=== PATIENT | female | born 1955 | race Caucasian/White ===

== ENCOUNTER 2021-03-17 12:11 | Outpatient (REF) | payer OTHER, SELFPAY ==
--- NOTE | ~2021-03-17 | XR_ITS ---
EXAMINATION: XR HAND, LEFT CLINICAL INFORMATION: Unspecified dislocation of unspecified finger. Patient cannot take ring fourth digit. COMPARISON: None TECHNIQUE: PA, lateral, and oblique views of the left hand. FINDINGS: There is an obliquely oriented midshaft fracture of the proximal phalanx of the ring finger which is partially obscured by a ring. There is radial displacement by approximately 2 mm, approximately 4 mm foreshortening, and 2 mm palmar displacement of the distal fragment. There is no obvious involvement of the articular surfaces. There is moderate to severe soft tissue edema of the finger about the fracture which is constrained by the ring. Remaining bones of the hands are intact and in normal alignment. Soft tissues are otherwise unremarkable. XR/XR hand LT min 3V IMPRESSION: Obliquely oriented midshaft fracture of the proximal phalanx of the ring finger.
== END 2021-03-17 12:12 | disposition home or self-care (01) ==
LOC: HO.HMGCX 12:11
PROVIDERS: PCP Internal Medicine; Visit Provider Internal Medicine
DX: S63.259A Unspecified dislocation of unspecified finger, initial encounter (principal)
CPT/HCPCS: 73130

== ENCOUNTER 2021-04-24 08:09 | Outpatient (REF) | payer OTHER, SELFPAY ==
--- NOTE | ~2021-04-24 | MM_ITS ---
EXAMINATION: MM SCREENING DIGITAL BREAST TOMOSYNTHESIS, BILATERAL CLINICAL INFORMATION: Screening. Asymptomatic. The lifetime risk of breast cancer based on the Tyrer-Cuzick Model is 6.4%. COMPARISON: Mammography: February 01, 2020 and studies dating back to September 13, 2013 TECHNIQUE: Digital breast tomosynthesis is performed in both the craniocaudal and mediolateral oblique views along with computer-aided detection (CAD). Synthesized 2D images are generated from the tomosynthesis. FINDINGS: The breasts are heterogeneously dense, which may obscure small masses (ACR BI-RADS breast composition Category c). There are no significant masses, abnormal calcifications, or other abnormalities. MM/MM tomosynthesis screening BI IMPRESSION: There are no significant changes from prior study. ASSESSMENT: BI-RADS 1: Negative RECOMMENDATION: Routine annual mammography screening. This patient's information was entered into a reminder system with a target due date for their next mammogram.
== END 2021-04-24 08:10 | disposition home or self-care (01) ==
LOC: HO.MAMMO 08:09
PROVIDERS: Visit Provider Internal Medicine
DX: Z12.31 Encounter for screening mammogram for malignant neoplasm of breast (principal)
CPT/HCPCS: 77063; 77067

== ENCOUNTER 2021-09-25 08:27 | Outpatient (REF) | payer OTHER, SELFPAY ==
--- NOTE | ~2021-09-25 | MM_ITS ---
EXAMINATION: BONE DENSITOMETRY CLINICAL INDICATION: Menopause. COMPARISON: Previous BD dated 06/06/2016 and baseline BD dated 11/13/2006. TECHNIQUE: Using a Approva DXA System (software version: 13.1) manufactured by [employer], dual-energy x-ray absorptiometry was performed of the lumbar spine and left hip. The images are of good technical quality. Summary results are attached. FINDINGS: AP SPINE L1-L4: Current: BMD 1.066 g/cm2, Z-score 0.7, T-score -0.9, normal, 1.1% increase from previous, 4.8% decrease from baseline (<5% change is not significant). Prior: BMD 1.054 g/cm2. Baseline: BMD 1.120 g/cm2. LEFT FEMUR, NECK: Current: BMD 0.909 g/cm2, Z-score 0.6, T-score -0.9, normal. Prior: BMD 0.938 g/cm2. Baseline: BMD 1.007 g/cm2. LEFT FEMUR, TOTAL: Current: BMD 1.005 g/cm2, Z-score 1.2, T-score 0.0, normal, 0.2% increase from previous, 7.1% decrease from baseline (<5% change is not significant). Prior: BMD 1.003 g/cm2. Baseline: BMD 1.082 g/cm2. IDENTIFIED RISK FACTORS: Height loss, menopause, hysterectomy, right oophorectomy. HISTORY OF FRACTURE: Outer; finger. MEDICATIONS: Calcium supplements or multivitamin, vitamin D. MM/XR DEXA axial skeleton IMPRESSION: 1. DIAGNOSIS: Normal bone density based on the lowest T-score value of -0.9 in the femoral neck and lumbar spine applying World Health Organization criteria. 2. 10-YEAR FRACTURE RISK PREDICTION, FRAX: According to the guidelines, FRAX calculation should only be performed on patients in the osteopenia bone density category. Therefore, FRAX was not performed on this patient. 3. Treatment Recommendations: NOF guidelines recommend consideration for treatment in postmenopausal women and men age 50 and older presenting with the following: -A hip or vertebral (clinical or morphometric) fracture. -T-score less than or equal to -2.5 at the femoral neck or spine after appropriate evaluation to exclude secondary causes. -Low bone mass at the hip or spine and a 10-year fracture probability by FRAX of greater than or equal to 3% for hip fracture or greater than or equal to 20% for major osteoporotic fracture based on the [place] adapted WHO algorithm. 4. Other Recommendations: All treatment decisions require clinical judgment and consideration of individual patient factors, including patient preferences, comorbidities, previous drug use, risk factors not captured in the FRAX model (e.g. frailty, falls, vitamin D deficiency, increased bone turnover, interval significant decline in bone density) and possible under or overestimation of fracture risk by FRAX. FUTURE SCAN RECOMMENDATION: People with diagnosed cases of osteoporosis or at high risk for fracture should have regular bone mineral density tests. For patients eligible for Medicare, routine testing is allowed once every 2 years. The testing frequency can be increased to one year for patients who have rapidly progressing disease, those who are receiving or discontinuing medical therapy to restore bone mass, or have additional risk factors.
== END 2021-09-25 08:28 | disposition home or self-care (01) ==
LOC: HO.MAMMO 08:27
PROVIDERS: Visit Provider Internal Medicine
DX: Z13.820 Encounter for screening for osteoporosis (principal); Z78.0 Asymptomatic menopausal state
CPT/HCPCS: 77080

== ENCOUNTER 2022-02-18 07:21 | Day surgery (SDC) | payer OTHER, SELFPAY ==
--- NOTE | 2022-02-15 12:58 | P.CONAN_ITS ---
Documented by User: Lakeshia Calderon NP 02/15/22 12:58 HPI - Anesthesia Eval Consult details Narrative: 66yo F for Colonoscopy [facility] Active Problems Active Problems: All Active Problems (Updated 02/15/22 @ 12:19 by Abram Briones RN) Dislocation, finger (Acute) Past Medical History Medical History Asthma History of benign breast biopsy Hx of endometriosis Irritable bowel syndrome with constipation Surgical History Surgical History History of colonoscopy History of hand surgery History of removal of both ovaries History of total abdominal hysterectomy Social History Social History Patient Tobacco Use Status: Never used Tobacco Use of substances other than those prescribed or required for medical reasons: No Are you DNR?: No Advance Directives: No Advance Directives Information Provided: Yes service: No Current occupational status: retired Current occupation: teacher Meds Allergies Allergy/AdvReac Type Severity Reaction Status Date / Time Seasonal Allergies Allergy Unknown Verified 02/15/22 12:20 Home Medications Medication Instructions Recorded Confirmed Last Taken Type multivitamin 1 tab PO DAILY 03/17/21 Unknown History omega 2-xwl-jxv-fish oil 60 mg-90 1 cap PO DAILY 03/17/21 Unknown History mg-500 mg capsule (Fish Oil) Viactiv 02/15/22 02/15/22 Unknown History albuterol 90 mcg/actuation aerosol mcg inhalation 02/15/22 Unknown History inhaler Exam Exam Date and Time: February 15, 2022 125 Assessment and Plan Assessment Anesthesia Assessment: Chart Reviewed Documented by User: Kamron Manley MD 02/18/22 08:45 PMFSH Past Medical History Medical History Asthma History of benign breast biopsy Hx of endometriosis Irritable bowel syndrome with constipation Family History Family history of problems with anesthesia: No Surgical History Surgical History History of colonoscopy History of hand surgery History of removal of both ovaries History of total abdominal hysterectomy History of Problems with Anesthesia: No Social History Social History Patient Tobacco Use Status: Never used Tobacco Use of substances other than those prescribed or required for medical reasons: No Are you DNR?: No Advance Directives: No Advance Directives Information Provided: Yes service: No Current occupational status: retired Current occupation: teacher Meds Allergies Allergy/AdvReac Type Severity Reaction Status Date / Time Seasonal Allergies Allergy Unknown Verified 02/15/22 12:20 Home Medications Medication Instructions Recorded Confirmed Last Taken Type multivitamin 1 tab PO DAILY 03/17/21 Unknown History omega 9-wqn-icl-fish oil 60 mg-90 1 cap PO DAILY 03/17/21 Unknown History mg-500 mg capsule (Fish Oil) Viactiv 02/15/22 02/15/22 Unknown History albuterol 90 mcg/actuation aerosol mcg inhalation 02/15/22 Unknown History inhaler Exam Airway Mallampati Class: II TM Dist: >3cm Neck ROM: Full Loose/Missing/Broken Teeth: No Heart: rrr+[id number] Lungs: cta b/l Assessment and Plan Assessment Anesthesia Assessment: Anesthesia Plan Discussed Final Anesthetic Review Family History of Problems with Anesthesia: No History of Problems with Anesthesia: No NPO: Yes ASA Class: III Final Preanesthetic Review: No Changes in Pt Med Stat, Meds/Allgs Chart Reviewed, Consent Obtained/Reviewed and Anes Risks/Benef Reviewed Patient Risk: Intermediate Procedure Risk: Low Assessment/Block/Sedation in SS: Assess/Block/Sedation-SS Anesthetic Plan Anesthetic Plan: MAC: and Agree w/ Assess. and Plan Disposition: Standard PACU
[2022-02-18 07:32] VITALS: BMI 20.5
[2022-02-18 07:39] VITALS: BMI 20.5
[2022-02-18 07:55] VITALS: BP 113/61; PULSE 85; RESP 18; TEMP 36.6; O2SAT 98
[2022-02-18] MEDS: Lactated Ringers 1,000 ML 100 ML IVCONT (07:57)
[2022-02-18 09:40] VITALS: BP 99/57; PULSE 79; RESP 24; TEMP 36.6; O2SAT 99
--- NOTE | 2022-02-18 09:42 | P.BOP_ITS ---
Brief Operative Note Date of Service: 02/18/22 Pre-op diagnosis: Screening Post-op diagnosis: other (Colon polyp) Procedure: Colonoscopy to the cecum with hot snare polypectomy and placement of 2 Resolution clips Surgeon: Hugo Gao Anesthesia: MAC Was an Door To Door Salesperson used for this Procedure?: No Estimated blood loss (mL): 0 Pathology: other (A. Transverse colon polyp) Condition: stable Disposition: PACU
[2022-02-18 09:55] VITALS: BP 98/61; PULSE 69; RESP 21; O2SAT 99
[2022-02-18 10:08] VITALS: BP 105/52; PULSE 65; RESP 20; TEMP 36.7; O2SAT 100
--- NOTE | 2022-02-18 10:17 | OP_ITS ---
SURGEON: Hugo Gao MD INDICATIONS: The patient presents for followup of personal history of tubular adenoma of the colon and colorectal cancer screening. Full consent has been obtained from her for this, including risks of bleeding and perforation. PREOPERATIVE DIAGNOSIS: POSTOPERATIVE DIAGNOSIS: PROCEDURE PERFORMED: Colonoscopy to the cecum with hot snare polypectomy and placement of 2 Resolution clips. ESTIMATED BLOOD LOSS: COMPLICATIONS: ANESTHESIA: Monitored anesthesia care. ASSISTANTS: SPECIMENS: PREOPERATIVE DIAGNOSES: Personal history of tubular adenoma of the colon and colorectal cancer screening. POSTOPERATIVE DIAGNOSES: Personal history of tubular adenoma of the colon and colorectal cancer screening, colon polyp, diverticulosis, and internal hemorrhoids. DESCRIPTION OF PROCEDURE: The patient was placed in the left lateral decubitus position. The digital rectal exam revealed no abnormalities. The Olympus video pediatric colonoscope was entered into the rectum and advanced to the cecum with the assistance of abdominal wall pressure. Advancement to the cecum was difficult and required abdominal wall pressure. Once in the cecum, I did identify cecal pouch with appendiceal orifice and a normal-appearing ileocecal valve. The cecal pouch appeared normal. There was transillumination of light deep in the right lower quadrant. The scope was slowly withdrawn assessing all mucosal surfaces carefully. For the most part, preparation was very good throughout the colon, although there were some areas of liquid stool in the descending and sigmoid colon, which were irrigated and suctioned away as best as possible. In the area of the transverse colon, there was a large approximately 1.5 to 2 cm flat, but raised polypoid lesion that was removed by hot snare polypectomy in piecemeal fashion. Two pieces were recovered by suction and the 3rd larger piece was recovered with a retrieval net bringing it out of the patient after the below 2 clips were applied to the polypectomy site.. The polypectomy site appeared to be clean, without any sign of residual polyp nor bleeding. I did place 2 resolution clips on the polypectomy site with good deployment and hemostasis.. Given the difficulty of the procedure, I did not go back to the polypectomy site. As I was withdrawing the retrieval net with the polyp in it from the patient, I was able to achieve a good visualization and no other polyps were visualized. There was no evidence of any colitis nor angiodysplasia. There was a mild amount of sigmoid diverticulosis noted. The scope was withdrawn from the patient and the retrieval net with the polyp was removed from the scope. The scope was readvanced into the rectum and the scope was retroflexed visualizing internal hemorrhoids, but no other pathology. The scope was straightened and withdrawn from the patient. She tolerated the procedure well and was returned to the recovery area in stable condition. IMPRESSION: 1. Colon polyp. 2. Diverticulosis. 3. Internal hemorrhoids. PLAN: The results of the pathology will be checked. Given the appearance and the size of the polyp, as well as the difficult procedure, I would recommend a repeat colonoscopy in 1 year for further surveillance. She will otherwise see me on a p.r.n. basis. She was advised not to use any aspirin or NSAIDs for 1 week. MD KAREN Doshi/LI / [id number] MTDD
== END 2022-02-18 11:03 | disposition home or self-care (01) ==
PROVIDERS: PCP Internal Medicine; Visit Provider Internal Medicine
PROC: 0DJD8ZZ Inspection of Lower Intestinal Tract, Via Natural or Artificial Opening Endoscopic (ICD-10-PCS; CPT 45378; principal; 2022-02-18 08:30)
DX: Z12.11 Encounter for screening for malignant neoplasm of colon (principal); Z86.010 Personal history of colon polyps; D12.3 Benign neoplasm of transverse colon; K57.30 Diverticulosis of large intestine without perforation or abscess without bleeding; K64.8 Other hemorrhoids; K58.1 Irritable bowel syndrome with constipation; J45.909 Unspecified asthma, uncomplicated; Z79.899 Other long term (current) drug therapy
CPT/HCPCS: 45385; 88305

== ENCOUNTER 2022-04-26 08:19 | Outpatient (REF) | payer OTHER, SELFPAY ==
--- NOTE | ~2022-04-26 | MM_ITS ---
EXAMINATION: MM SCREENING DIGITAL BREAST TOMOSYNTHESIS, BILATERAL CLINICAL INFORMATION: Screening. Asymptomatic. The lifetime risk of breast cancer based on the Tyrer-Cuzick Model is 7%. COMPARISON: Mammography: 04/24/2021, 02/01/2020, 01/27/2020, 01/11/2019, 06/26/2018, 12/19/2017, 12/05/2017 TECHNIQUE: Digital breast tomosynthesis is performed in both the craniocaudal and mediolateral oblique views along with computer-aided detection (CAD). Synthesized 2D images are generated from the tomosynthesis. Additional exaggerated right CC view is provided. FINDINGS: The breasts are heterogeneously dense, which may obscure small masses (ACR BI-RADS breast composition Category c). Parenchymal pattern is similar to prior studies. There is no developing density or architectural abnormality. Again, there are numerous bilateral scattered calcifications similar in distribution and number. No significant changes from prior exams. The axilla and skin contours are unremarkable. MM/MM tomosynthesis screening BI IMPRESSION: No mammographic evidence of malignancy. ASSESSMENT: BI-RADS 2: Benign RECOMMENDATION: Routine annual mammography screening. This patient's information was entered into a reminder system with a target due date for their next mammogram.
== END 2022-04-26 08:20 | disposition home or self-care (01) ==
LOC: HO.MAMMO 08:19
PROVIDERS: PCP Internal Medicine; Visit Provider Internal Medicine
DX: Z12.31 Encounter for screening mammogram for malignant neoplasm of breast (principal)
CPT/HCPCS: 77063; 77067

== ENCOUNTER 2023-05-09 09:06 | Outpatient (REF) | payer OTHER, SELFPAY ==
--- NOTE | ~2023-05-09 | MM_ITS ---
EXAMINATION: MM SCREENING DIGITAL BREAST TOMOSYNTHESIS, BILATERAL CLINICAL INFORMATION: Screening. Asymptomatic. COMPARISON: Mammography: This study is compared with prior exams dating back to 2018. TECHNIQUE: Digital breast tomosynthesis is performed in both the craniocaudal and mediolateral oblique views along with computer-aided detection (CAD). Synthesized 2D images are generated from the tomosynthesis. FINDINGS: The breasts are heterogeneously dense, which may obscure small masses (ACR BI-RADS breast composition Category c). In the upper outer quadrant of the anterior third of the right breast, there is a focal asymmetry which warrants additional mammographic and targeted sonographic evaluation. In the left breast, there are no significant masses, abnormal calcifications, or other abnormalities. MM/MM tomosynthesis screening BI IMPRESSION: Focal asymmetry of the right breast warrants additional mammographic and targeted sonographic evaluation. No mammographic signs of malignancy left breast. ASSESSMENT: BI-RADS BI-RADS 0 - Incomplete: Needs additional Imaging. RECOMMENDATION: 1. Additional views of the right breast. 2. Targeted ultrasound if warranted after review of the additional views. 3. Radiology department staff will contact the patient for additional imaging. Additional Imaging required This examination should not preclude the clinical evaluation of a suspicious palpable abnormality. This patient's information was entered into a reminder system with a target due date for their next mammogram.
== END 2023-05-09 09:07 | disposition home or self-care (01) ==
LOC: HO.MAMMO 09:06
PROVIDERS: PCP Internal Medicine; Visit Provider Internal Medicine
DX: Z12.31 Encounter for screening mammogram for malignant neoplasm of breast (principal)
CPT/HCPCS: 77063; 77067

== ENCOUNTER → 2023-05-09 09:15 | Outpatient (BNV) | payer OTHER, SELFPAY | PROVIDERS: PCP Internal Medicine; Visit Provider Radiology Diagnostic Radiology | DX: Z12.31 Encounter for screening mammogram for malignant neoplasm of breast (principal) | CPT/HCPCS: 77063; 77067 ==

== ENCOUNTER 2023-06-10 14:00 | Outpatient (REF) | payer OTHER, SELFPAY ==
--- NOTE | ~2023-06-10 | US_ITS ---
EXAMINATION: MM DIAGNOSTIC DIGITAL BREAST TOMOSYNTHESIS, RIGHT US BREAST LIMITED, RIGHT MAMMOGRAPHY: CLINICAL INFORMATION: Diagnostic Follow-up for focal asymmetry right breast upper outer quadrant anterior one third seen on screening exam. COMPARISON: Mammography: 05/09/2023, 04/26/2022, 04/24/2021, 02/01/2020, 01/27/2020, 01/11/2019, 06/26/2018, 12/19/2017, 12/05/2017 and dating back to 2013. TECHNIQUE: Digital breast tomosynthesis is performed in the following views: Full-field digital 3-D right mediolateral view, 3-D spot compression views right CC x2 and right MLO x1. FINDINGS: The breasts are extremely dense, which lowers the sensitivity of mammography (ACR BI-RADS breast composition Category d). Diagnostic views demonstrate essential effacement of the right breast upper outer quadrant anterior one third focal asymmetry, which in retrospect appears similar to examinations dating back to 2013. Again, there are numerous bilateral scattered calcifications similar in distribution and number with no aggressive changes. No dominant mass, or definite area of architectural distortion identified. The fibronodular dense parenchymal pattern is essentially unchanged from multiple prior exams. There is no skin or axillary abnormality. ULTRASOUND: CLINICAL INFORMATION: Diagnostic Follow-up for focal asymmetry right breast upper outer quadrant anterior one third seen on screening exam. COMPARISON: No prior ultrasound. TECHNIQUE: Targeted sonographic evaluation was performed using a high frequency linear transducer. Attention was focused on the upper outer quadrant of the right breast extending to the retroareolar region. Selected archived documentation. FINDINGS: RIGHT BREAST: There is dense fibronodular and fibrocystic tissue. No suspicious mass is seen. There is no pathologic acoustic shadowing. There is prominent retroareolar duct ectasia extending to the 9:00 axis without definite intraductal mass or filling defect. At the 9:00 axis there is a simple cyst measuring 1.0 x 0.3 x 1.1 cm, which may actually represent an ectatic duct when the the cine clip is viewed. US/US breast RT limited mamm only IMPRESSION: There are no findings suspicious for malignancy in the right breast. Extremely dense nodular breast parenchyma is again noted, with associated retroareolar duct ectasia as detailed. This duct ectasia likely represents the asymmetry in question which mostly effaces on diagnostic views. These findings are benign. Recommend the patient return to routine annual screening. OVERALL ASSESSMENT: Mammography: BI-RADS 2 - Benign Findings Ultrasound: BI-RADS 2 - Benign Findings RECOMMENDATION: 1 year F/U Results were provided to the patient at time of visit by the technologist. This patient's information was entered into a reminder system with a target due date for their next mammogram.
== END 2023-06-10 14:01 | disposition home or self-care (01) ==
LOC: HO.MAMMO 14:00
PROVIDERS: PCP Internal Medicine; Visit Provider Internal Medicine
DX: N64.89 Other specified disorders of breast (principal)
CPT/HCPCS: 76642; 77061; 77065

== ENCOUNTER → 2023-06-10 14:30 | Outpatient (BNV) | payer OTHER, SELFPAY | PROVIDERS: PCP Internal Medicine; Visit Provider Radiology Diagnostic Radiology | DX: N64.89 Other specified disorders of breast (principal) | CPT/HCPCS: 76642; 77061; 77065 ==

== ENCOUNTER 2023-09-01 09:20 | Day surgery (SDC) | payer OTHER, SELFPAY ==
[2023-08-28 14:24] VITALS: BMI 21.0
--- NOTE | 2023-08-29 09:17 | HO.ANESPROP2 ---
Documented by User: Lakeshia Calderon NP 08/29/23 09:17 HPI - Anesthesia Eval Consult details Narrative: 68yo F for Colonoscopy PMFSH Active Problems Active Problems: All Active Problems Dislocation, finger (Acute) Past Medical History Medical History Hx of endometriosis History of benign breast biopsy Asthma Irritable bowel syndrome with constipation Family History Family history of problems with anesthesia: No Surgical History Surgical History (Updated 08/28/23 @ 14:23 by Masha Caldwell RN) History of hand surgery History of total abdominal hysterectomy History of removal of both ovaries History of colonoscopy History of Problems with Anesthesia: No Social History Social History Patient Tobacco Use Status: Never used Tobacco Second Hand Smoke Exposure: No Use of substances other than those prescribed or required for medical reasons: No Are you DNR?: No Advance Directives: No Advance Directives Information Provided: Yes Advance Directives on File: No service: No Current occupational status: retired Current occupation: teacher Meds Allergies Allergy/AdvReac Type Severity Reaction Status Date / Time Seasonal Allergies Allergy Unknown Verified 02/15/22 12:20 Home Medications ?Medication ?Instructions ?Recorded ?Confirmed ?Last Taken ?Type multivitamin 1 tab PO DAILY 03/17/21 08/28/23 Unknown History omega 3-pbo-oeb-fish oil 60 mg-90 1 cap PO DAILY 03/17/21 08/28/23 Unknown History mg-500 mg capsule (Fish Oil) albuterol 90 mcg/actuation aerosol 90 mcg inhalation Q4H PRN 02/15/22 08/28/23 Unknown History inhaler Shortness Of Breath Lactobacillus acidophilus and 1 cap PO DAILY 08/28/23 08/28/23 Unknown History rhamnosus 15 billion cell capsule (Probiotic) calcium-vitamin D3-vitamin K 500 1 tab PO DAILY 08/28/23 08/28/23 Unknown History mg-100 unit-40 mcg chewable tablet Exam Height,Weight and Vital Signs: Height 5 ft 8.5 in Weight 63.503 kg Assessment and Plan Assessment Anesthesia Assessment: Chart Reviewed Final Anesthetic Review Family History of Problems with Anesthesia: No History of Problems with Anesthesia: No Documented by User: [place] Evangelista MD 09/01/23 10:29 [facility] Past Medical History Medical History Hx of endometriosis History of benign breast biopsy Asthma Irritable bowel syndrome with constipation Surgical History Surgical History (Updated 08/28/23 @ 14:23 by Masha Caldwell RN) History of hand surgery History of total abdominal hysterectomy History of removal of both ovaries History of colonoscopy Social History Social History Patient Tobacco Use Status: Never used Tobacco Second Hand Smoke Exposure: No Use of substances other than those prescribed or required for medical reasons: No Are you DNR?: No Advance Directives: No Advance Directives Information Provided: Yes Advance Directives on File: No service: No Current occupational status: retired Current occupation: teacher [employer] Allergies Allergy/AdvReac Type Severity Reaction Status Date / Time Seasonal Allergies Allergy Unknown Verified 02/15/22 12:20 Home Medications ?Medication ?Instructions ?Recorded ?Confirmed ?Last Taken ?Type multivitamin 1 tab PO DAILY 03/17/21 08/28/23 Unknown History omega 5-kpe-ifv-fish oil 60 mg-90 1 cap PO DAILY 03/17/21 08/28/23 Unknown History mg-500 mg capsule (Fish Oil) albuterol 90 mcg/actuation aerosol 90 mcg inhalation Q4H PRN 02/15/22 08/28/23 Unknown History inhaler Shortness Of Breath Lactobacillus acidophilus and 1 cap PO DAILY 08/28/23 08/28/23 Unknown History rhamnosus 15 billion cell capsule (Probiotic) calcium-vitamin D3-vitamin K 500 1 tab PO DAILY 08/28/23 08/28/23 Unknown History mg-100 unit-40 mcg chewable tablet Exam Airway Mallampati Class: II TM Dist: <=3cm Neck ROM: Full Loose/Missing/Broken Teeth: No Heart: rrr Lungs: cta Assessment and Plan Assessment Anesthesia Assessment: Anesthesia Plan Discussed Final Anesthetic Review NPO: Yes ASA Class: II Final Preanesthetic Review: No Changes in Pt Med Stat, Meds/Allgs Chart Reviewed, Consent Obtained/Reviewed and Anes Risks/Benef Reviewed Patient Risk: Intermediate Procedure Risk: Intermediate Anesthetic Plan Anesthetic Plan: MAC: Disposition: Standard PACU
[2023-09-01 10:15] VITALS: BMI 21.0
[2023-09-01 10:25] VITALS: BP 138/71; PULSE 90; RESP 16; TEMP 37.1; O2SAT 99
[2023-09-01] MEDS: Lactated Ringers 1,000 ML 100 ML IVCONT (10:31)
[2023-09-01 12:08] VITALS: BP 94/53; PULSE 99; RESP 16; TEMP 36.1; O2SAT 97
--- NOTE | 2023-09-01 12:16 | P.BOP_ITS ---
Brief Operative Note Date of Service: 09/01/23 Pre-op diagnosis: Screening Post-op diagnosis: other (Diverticulosis) Procedure: Colonoscopy to the cecum and TI Surgeon: Hugo Gao MD Anesthesia: MAC Was an Paraprofessional Aide Teacher used for this Procedure?: No Estimated blood loss (mL): 0 Pathology: none sent Condition: stable Disposition: PACU
[2023-09-01 12:23] VITALS: BP 103/46; PULSE 90; RESP 16; O2SAT 98
[2023-09-01 12:37] VITALS: BP 101/54; PULSE 89; RESP 14; TEMP 36.2; O2SAT 99
--- NOTE | 2023-09-01 12:58 | OP_ITS ---
DATE OF SERVICE: 09/01/2023 SURGEON: Hugo Gao MD INDICATIONS: The patient presents for followup of colorectal cancer screening and personal history of tubular adenomas and serrated adenomas of the colon. Full consent has been obtained from her for this, including risks of bleeding and perforation. PREOPERATIVE DIAGNOSIS: POSTOPERATIVE DIAGNOSIS: PROCEDURE PERFORMED: Colonoscopy to cecum and terminal ileum. ESTIMATED BLOOD LOSS: COMPLICATIONS: ANESTHESIA: Monitored anesthesia care. ASSISTANTS: SPECIMENS: PREOPERATIVE DIAGNOSES: Colorectal cancer screening, personal history of tubular adenoma of the colon and personal history of serrated adenoma of the colon. POSTOPERATIVE DIAGNOSES: Colorectal cancer screening, personal history of tubular adenoma of the colon and personal history of serrated adenoma of the colon, diverticulosis, and internal and external hemorrhoids. DESCRIPTION OF PROCEDURE: The patient was placed in the left lateral decubitus position. The digital rectal exam revealed no abnormalities other than external hemorrhoids. The Olympus video pediatric colonoscope was entered into the rectum and advanced to the cecum. Advancement to the cecum was difficult and required abdominal wall pressure for the majority of the case. However, once in the cecum, I did identify cecal pouch with appendiceal orifice and a normal-appearing ileocecal valve. The terminal ileum was cannulated and appeared normal. The scope was withdrawn back in the colon. The entire cecum and ileocecal valve appeared normal. There was transillumination of light deep in the right lower quadrant. The scope was then slowly withdrawn assessing all mucosal surfaces carefully. For the most part, preparation was excellent. After her 2 day prep. There was some residual liquid stool which was suctioned, but there was no other significant stool and preparation was very good. I did visualize a scar in the transverse colon from her previous polypectomy. I did not visualize any sign of polyps, colitis, nor angiodysplasia. There was a mild amount of sigmoid diverticulosis. In the rectum, scope was retroflexed visualizing internal hemorrhoids, but no other pathology. The rectal mucosa appeared normal. The scope was straightened and withdrawn from the patient. She tolerated the procedure well and was returned to the recovery area in stable condition. IMPRESSION: 1. Diverticulosis. 2. Internal and external hemorrhoids. PLAN: Given her previous history, I would recommend a followup colonoscopy in 3 years for surveillance. She will otherwise see me on a p.r.n. basis. She should continue a bowel regimen of fiber and MiraLAX on at least a daily basis, but twice a day if needed. She will otherwise see me on a p.r.n. basis. MD KAREN Doshi/LI / [phone]
== END 2023-09-01 12:46 | disposition home or self-care (01) ==
PROVIDERS: PCP Internal Medicine; Visit Provider Internal Medicine
PROC: 0DJD8ZZ Inspection of Lower Intestinal Tract, Via Natural or Artificial Opening Endoscopic (ICD-10-PCS; CPT 45378; principal; 2023-09-01 11:20)
DX: Z12.11 Encounter for screening for malignant neoplasm of colon (principal); Z86.010 Personal history of colon polyps; K57.30 Diverticulosis of large intestine without perforation or abscess without bleeding; K64.8 Other hemorrhoids; K64.4 Residual hemorrhoidal skin tags; K58.1 Irritable bowel syndrome with constipation; J45.909 Unspecified asthma, uncomplicated; Z79.899 Other long term (current) drug therapy; Z98.890 Other specified postprocedural states
CPT/HCPCS: 45378; J2704

== ENCOUNTER 2024-06-21 08:11 | Outpatient (REF) | payer OTHER, SELFPAY ==
--- OUTSIDE RECORDS SUMMARY | 2024-06-21 12:35 | XMS_ITS ---
Author Organization [facility] Address [address] [place] [address] Care Team Providers Care Fabrication Lead Name Role Phone Cecil Tomas MD Primary Care Provider Hugo Felix Unavailable [phone] REASON FOR VISIT screening, hx polyps, serrated adenoma colon PROBLEMS Problem Type ICD Code Onset Dates Problem Status W/U Status Risk SNOMED Code Notes Problem Personal history of colonic polyps (Z86.010) Active confirmed History of polyp of colon (situation) (453350345) Encounters Encounter Location Date Provider Diagnosis [facility] [place] [address], [place] [phone] [place]/01/2023 Hugo Gao Encounter for scre ening colonoscopy Z12.11 and Personal history of colonic polyps Z86.010 ASSESSMENTS Encounter Date Diagnosis Assessment Notes Treatment Notes Treatment Clinical Notes 09/01/2023 Encounter for screening colonoscopy (ICD-10 - Z12.11) 09/01/2023 Personal history of colonic polyps (ICD-10 - Z86.010) PLAN OF TREATMENT No Information
--- OUTSIDE RECORDS SUMMARY | 2024-06-21 12:35 | XMS_ITS | Patient Health Record ---
Author Organization [facility] Address [address] [place] [address] Care Team Providers Care Senior Compensation Analyst Name Role Phone Cecil Tomas MD Primary Care Provider Hugo Felix Unavailable [phone] ALLERGIES Allergen (clinical drug ingredient) Drug/Non Drug Allergy documented on EMR Reaction Allergy Type Onset Date Status seasonal (uncoded) Unknown Allergy A ctive REASON FOR REFERRAL No Information MEDICATIONS Medication SIG (Take, Route, Frequency, Duration) Notes Start Date End Date Status Fish Oil Active Viactiv Active Digestive Enzyme Act tom Albuterol Not-Taking Probiotic - Orally Active Multivitamin Adult - Orally Active IMMUNIZATIONS Vaccine Route Administration Date Status Comme nts Influenza Unknown 01/24/2021 Administered SOCIAL HISTORY Sex Assigned At : Social History Observation Description Sex Assigned At Unknown PROBLEMS Problem Type ICD Code Onset Dates Problem Status W/U Status Risk SNOMED Code Notes Problem Encounter for screening for malignant neoplasm of colon (Z12.11) Active confirmed 384071498 Problem History of adenomatous polyp of colon (Z86.010) Active confirmed 297619763 Problem Personal history of colonic polyps (Z86.010) Active confirmed History of poly p of colon (situation) (083664028) Problem Encounter for screening for malignant neoplasm of rectum (Z12.12) Active confirmed Screening fo r malignant neoplasm of rectum (035651339) Problem Irritable bowel syndrome with constipation (K58.1) Active confirmed 404839398 Problem Diverticulosis of colon (K57.30) Active confirmed Diverticulosi s of colon (958609077) Problem Serrated adenoma of colon (D12.6) Active confirmed 544554281 Encounters Encounter Location Date Provider Diagnosis [facility] [place] [facility] [address], [place] [id number] 09/01/2023 Hugo Gao Encounter for scre ening colonoscopy Z12.11 and Personal history of colonic polyps Z86.010 ASSESSMENTS Encounter Date Diagnosis Assessment Notes Treatment Notes Treatment Clinical Notes 09/01/2023 Encounter for screening colonoscopy (ICD-10 - Z12.11) 09/01/2023 Personal history of colonic polyps (ICD-10 - Z86.010) PLAN OF TREATMENT Future Test Test Name Order Date COLONOSCOPY 03/29/2011 COLONOSCOPY 07/25/2016 COLONOSCOPY 12/20/2021 COLONOSCOPY 06/03/2023 Insurance Providers Payer Name Payer Address Payer Phone Subscriber Number Group Number Insured Name Patient Relationship to Insured Coverage Start Date Coverage End Date [facility] [employer] [address] [place] [address] [id number] KALLIE DAVID Self - patient is the insured MEDICAL (GENERAL) HISTORY Medical History History ICD Code Denies HI,DM,CVA,renal disease Irritable bowel syndrome wit h constipation-reportedly had negative labs for celiac disease. Screening colonoscopy 2007-- flat tubular adenoma removed; negative colonoscopy in 2010 Asthma Seasonal allergies Negative colonoscopy in 10/2016 Colonoscopy in January of 2022 revealed a nearly 2 cm relatively flat serrated adenoma that was removed from the transverse colon Surgical History Surgery Date(Month/Year) Surgeries for endometriosis with removal of 1 1/2 ovaries, and a fallopian tube. Benign breast biopsy RUSTY 2014 Broken left 4th finger with surgery and pins
--- OUTSIDE RECORDS SUMMARY | 2024-06-21 12:35 | XMS_ITS ---
Author Organization [facility] Address [address] [place] [id number] Care Team Providers Care Party Host/Hostess Name Role Phone Cecil Tomas MD Primary Care Provider Hugo Felix Unavailable [phone] ALLERGIES Allergen (clinical drug ingredient) Drug/Non Drug Allergy documented on EMR Reaction Allergy Type Onset Date Status seasonal (uncoded) Unknown Allergy A ctive REASON FOR VISIT Patient presents today for a colon screening MEDICATIONS Medication SIG (Take, Route, Frequency, Duration) Notes Start Date End Date Status Viactiv Active Albuterol Not-Taking Probiotic - Orally Active Multivitamin Adult - Orally Active Fish Oil Active Digestive Enzyme Act tom PROBLEMS Problem Type ICD Code Onset Dates Problem Status W/U Status Risk SNOMED Code Notes Problem Serrated adenoma of colon (D12.6) Active confirmed 230201825 VITAL SIGNS BMI 20.98 kg/m2 06/03/2023 Blood pressure systolic 00 mm Hg 06/03/19 24 Blood pressure diastolic 00 mm Hg 024 Height 68.50 in 06/03/2023 Temperature 96.4 degrees Fahrenheit 06/03/19 24 Weight 140 lbs 06/03/2023 Encounters Encounter Location Date Provider Diagnosis [facility] [address] [place] [phone] 06/03/2023 Hugo Gao Serrated adenoma of colon D12.6 ; Irritable bowel syndrome with constipation K58.1 ; History of adenomatous polyp of colon Z86.010 and Encounter for screening for malignant neoplasm of colon Z12.11 ASSESSMENTS Encounter Date Diagnosis Assessment Notes Treatment Notes Treatment Clinical Notes 06/03/2023 Serrated adenoma of colon (ICD-10 - D12.6) 06/03/2023 Irritable bowel syndrome with constipation (ICD-10 - K58.1) 06/03/2023 History of adenomatous polyp of colon (ICD-10 - Z86.010) 06/03/2023 Encounter for screening for malignant neoplasm of colon (ICD-10 - Z12.11) Stop fish oil for 1 week before the colonoscopy PLAN OF TREATMENT Treatment Notes Assessment Notes Encounter for screening for malignant neoplasm of colon Stop fish oil for 1 week before the colonoscopy Future Test Test Name Order Date COLONOSCOPY 06/03/2023 Next Appt Details Follow Up: prn, Reason: Progress Notes * Examination Category Sub-Category Detail Notes General Examination GENERAL APPEARANCE: pleasant , well nourished, well developed, in no acute distress EYES: sclera non-icteric NECK/THYROID: no cervical lymphade nopathy, neck supple HEART: S1, S2 normal LUNGS: clear to auscultatio n bilaterally ABDOMEN: normal bowel sounds, no guarding or rigidity, no hepatosplenomegaly, no masses palpable, soft, nontender, nondistended. NEUROLOGIC: alert and oriented SKIN: nonjaundiced, no spi tim angiomata. EXTREMITIES: no edema ORAL CAVITY: mucosa moist
== END 2024-06-21 08:12 | disposition home or self-care (01) ==
LOC: HO.MAMMO 08:11
PROVIDERS: PCP Internal Medicine; Visit Provider Internal Medicine
DX: Z12.31 Encounter for screening mammogram for malignant neoplasm of breast (principal)
CPT/HCPCS: 77063; 77067

== ENCOUNTER → 2024-06-21 08:30 | Outpatient (BNV) | payer OTHER, SELFPAY | PROVIDERS: PCP Internal Medicine; Visit Provider Internal Medicine | DX: Z12.31 Encounter for screening mammogram for malignant neoplasm of breast (principal) | CPT/HCPCS: 77063; 77067 ==